=== PATIENT | female | born 1975 | race Caucasian/White ===

== ENCOUNTER 2017-08-22 16:25 | Emergency (ER) | payer OTHER, MEDICARE ==
[~2017-08-22] VITALS: Ht 167.6 cm; Wt 75.5 kg
[~2017-08-22 16:25] MED LIST: LURA40 PO
[2017-08-22] MEDS ORDERED: SODIUM CHLORIDE 0.9% 1,000 ML IV ONE (17:45)
[2017-08-22 18:30] LABS: BASOPHILS % (AUTO) 1.2 % (0.0-2.0); EOSINOPHILS % (AUTO) 3.8 % (1.0-6.0); HEMATOCRIT 34.4 % (36-46); HEMOGLOBIN 11.9 g/dL (12.0-16.0); LYMPHOCYTES # (AUTO) 1.6 K/uL (1.0-4.8); MEAN CORPUSCULAR HEMOGLOBIN 29.5 pg (26.0-34.0); MEAN CORPUSCULAR HGB CONC 34.6 G/dL (31.0-37.0); MEAN CORPUSCULAR VOLUME 85 fL (80-100); MONOCYTES # (AUTO) 0.5 K/uL (0.1-1.0); MONOCYTES % (AUTO) 7.1 % (2.0-9.0); NEUTROPHILS # (AUTO) 4.9 K/uL (1.8-7.7); NEUTROPHILS % (AUTO) 65.9 % (40.0-70.0); PLATELET COUNT (AUTO) 340 K/uL (150-450); RED BLOOD CELL COUNT(AUTO) 4.04 MIL/uL (4.00-5.20); RED CELL DISTRIBUTION WIDTH 14.5 % (11.5-14.5); WHITE BLOOD COUNT (AUTO) 7.5 K/uL (4.5-11.0)
[2017-08-22 18:41] LABS: ANION GAP 7 mmol/L (8-16); CALCIUM, TOTAL 8.4 mg/dL (8.8-10.5); CARBON DIOXIDE 25 mmol/L (22-29); CHLORIDE 106 mmol/L (98-107); CREATININE 0.87 mg/dL (0.60-1.30); GLOMERULAR FILTR. RATE CALC > 60 mL/min (>60); POTASSIUM 3.2 mmol/L (3.5-5.1); SODIUM SERUM 138 mmol/L (136-145); UREA NITROGEN, BLOOD 9 mg/dL (7-18)
[2017-08-22 18:55] LABS: ALANINE AMINOTRANSFERASE 56 U/L (12-78); ALBUMIN 3.6 g/dL (3.4-5.0); ASPARTATE AMINOTRANSFERASE 28 U/L (15-37); BILIRUBIN,TOTAL 0.6 mg/dL (0.1-1.0); THYROID STIMULATING HORMONE 0.89 uIU/mL (0.36-3.74); TOTAL PROTEIN, SERUM 6.5 g/dL (6.4-8.2)
[2017-08-22] MEDS ORDERED: POTASSIUM CHLORIDE 10% 40 MEQ/30 ML LIQUID UDCUP PO ONE (19:00)
[2017-08-22 19:50] LABS: ADD UA MICROSCOPIC YES; APPEARANCE,URINE CLEAR (CLEAR); GLUCOSE, URINE (UA) NEGATIVE (NEGATIVE); KETONES,URINE NEGATIVE (NEGATIVE); LEUKOCYTE ESTERASE ,URINE TRACE (NEGATIVE); OCCULT BLOOD,URINE NEGATIVE (NEGATIVE); PROTEIN,URINE NEGATIVE (NEGATIVE)
[2017-08-22 19:51] VITALS: BP 100/65
[2017-08-22 19:56] LABS: SQUAMOUS EPITHELIAL CELL,UR Moderate /LPF (None Seen)
[2017-08-22 19:58] LABS: RBC,URINE 0-2 /HPF (0-2)
== END 2017-08-22 19:54 | disposition home or self-care (01) ==
LOC: EMS 16:26
DX: R53.1 Weakness (principal); E87.6 Hypokalemia; F41.9 Anxiety disorder, unspecified; I10 Essential (primary) hypertension; F32.9 Major depressive disorder, single episode, unspecified; F20.9 Schizophrenia, unspecified
CPT/HCPCS: 36415; 80053; 80307; 81001; 84443; 84484; 84703; 85025; 87086; 93005; 96360; 99285; G0480; J7030

== ENCOUNTER 2017-10-30 17:49 | Emergency (ER) | payer MEDICARE, OTHER ==
[~2017-10-30] VITALS: Ht 165.1 cm; Wt 66.0 kg
[2017-10-30] MEDS ORDERED: SODIUM CHLORIDE 0.9% 1,000 ML IV ONE (18:45)
[2017-10-30] MEDS ORDERED: FAMOTIDINE 10 MG/ML 2 ML VIAL IVP ONE (18:45)
[2017-10-30] MEDS ORDERED: ONDANSETRON HCL 4 MG/2 ML VIAL IVP ONE (18:45)
[2017-10-30 18:52] LABS: BASOPHILS % (AUTO) 0.8 % (0.0-2.0); EOSINOPHILS % (AUTO) 0.5 % (1.0-6.0); HEMATOCRIT 38.4 % (36-46); HEMOGLOBIN 13.2 g/dL (12.0-16.0); LYMPHOCYTES # (AUTO) 0.8 K/uL (1.0-4.8); MEAN CORPUSCULAR HEMOGLOBIN 29.3 pg (26.0-34.0); MEAN CORPUSCULAR HGB CONC 34.5 G/dL (31.0-37.0); MEAN CORPUSCULAR VOLUME 85 fL (80-100); MONOCYTES # (AUTO) 0.3 K/uL (0.1-1.0); MONOCYTES % (AUTO) 3.5 % (2.0-9.0); NEUTROPHILS # (AUTO) 7.6 K/uL (1.8-7.7); PLATELET COUNT (AUTO) 312 K/uL (150-450); RED BLOOD CELL COUNT(AUTO) 4.51 MIL/uL (4.00-5.20); RED CELL DISTRIBUTION WIDTH 13.9 % (11.5-14.5)
[2017-10-30 18:57] LABS: NEUTROPHILS % (AUTO) 86.2 % (40.0-70.0)
[2017-10-30 18:58] LABS: ANION GAP 10 mmol/L (8-16); CARBON DIOXIDE 24 mmol/L (22-29); CHLORIDE 101 mmol/L (98-107); CREATININE 0.73 mg/dL (0.60-1.30); GLOMERULAR FILTR. RATE CALC > 60 mL/min (>60); GLUCOSE,RANDOM 106 mg/dL (70-110); POTASSIUM 3.8 mmol/L (3.5-5.1); SODIUM SERUM 135 mmol/L (136-145); UREA NITROGEN, BLOOD 9 mg/dL (7-18)
[2017-10-30 19:04] LABS: ALANINE AMINOTRANSFERASE 28 U/L (12-78); ALBUMIN 3.8 g/dL (3.4-5.0); ALKALINE PHOSPHATASE 96 U/L (46-116); AMYLASE 41 U/L (25-115); ASPARTATE AMINOTRANSFERASE 16 U/L (15-37); BILIRUBIN,TOTAL 0.9 mg/dL (0.1-1.0); LIPASE 96 U/L (73-393); TOTAL PROTEIN, SERUM 7.4 g/dL (6.4-8.2)
[2017-10-30 19:35] VITALS: BP 101/65
[2017-10-30 20:01] LABS: APPEARANCE,URINE TURBID (CLEAR); BILIRUBIN,URINE NEGATIVE (NEGATIVE); GLUCOSE, URINE (UA) NEGATIVE (NEGATIVE); KETONES,URINE 40 mg/dL (NEGATIVE); LEUKOCYTE ESTERASE ,URINE NEGATIVE (NEGATIVE); NITRATE,URINE NEGATIVE (NEGATIVE); OCCULT BLOOD,URINE NEGATIVE (NEGATIVE); PH,URINE 8.5 (5.0-8.0); PROTEIN,URINE NEGATIVE (NEGATIVE); UROBILINOGEN,URINE 0.2 mg/dL (<=1.0)
[2017-10-30 20:06] LABS: AMPHET/METH SCREEN,URINE NEGATIVE (NEGATIVE); BARBITURATE SCREEN, URINE NEGATIVE (NEGATIVE); BENZODIAZEPINES SCREEN,URINE NEGATIVE (NEGATIVE); CANNABINOID SCREEN,URINE NEGATIVE (NEGATIVE); COCAINE SCREEN,URINE NEGATIVE (NEGATIVE); METHADONE SCREEN, URINE NEGATIVE (NEGATIVE); OPIATE SCREEN,URINE NEGATIVE (NEGATIVE)
[2017-10-30 20:10] LABS: PHENCYCLIDINE SCREEN,URINE NEGATIVE (NEGATIVE)
[2017-10-30 20:17] LABS: AMORPHOUS SEDIMENT,UR Moderate /LPF (None Seen); BACTERIA,URINE None Seen /HPF (None Seen); RBC,URINE 0-2 /HPF (0-2); SQUAMOUS EPITHELIAL CELL,UR Few /LPF (None Seen); WBC,URINE None Seen /HPF (0-5)
== END 2017-10-30 21:12 | disposition home or self-care (01) ==
LOC: EMS 17:50
DX: R10.84 Generalized abdominal pain (principal); R11.2 Nausea with vomiting, unspecified; R19.7 Diarrhea, unspecified; I10 Essential (primary) hypertension
CPT/HCPCS: 36415; 80053; 80307; 81001; 82150; 83690; 84703; 85025; 96361; 96374; 96375; 99284; G0480; J2405; J3490; J7030

== ENCOUNTER 2018-03-30 23:58 | Emergency (ER) | payer MEDICARE ==
[~2018-03-30] VITALS: Ht 167.6 cm; Wt 75.0 kg
[2018-03-31 00:14] VITALS: BP 109/63
== END 2018-03-31 01:40 | disposition left against medical advice (07) ==
LOC: EMS 03-31
DX: R51 Headache (principal); I10 Essential (primary) hypertension; Z53.21 Procedure and treatment not carried out due to patient leaving prior to being seen by health care provider

== ENCOUNTER 2018-04-27 09:09 | Inpatient (IN) | payer MEDICARE ==
[~2018-04-27] VITALS: Ht 167.6 cm; Wt 66.7 kg
[2018-04-27 11:00] VITALS: BP 97/63
[2018-04-27] MEDS ORDERED: LORazepam 2 MG TABLET PO PRN (11:00)
[2018-04-27] MEDS ORDERED: ZOLPIDEM TARTRATE 10 MG TABLET PO PRN (11:00)
[2018-04-27] MEDS ORDERED: HALOPERIDOL 5 MG TABLET PO PRN (11:00)
[2018-04-27 13:40] VITALS: BP 109/76
[2018-04-27] MEDS ORDERED: BACITRACIN 28.4 GM OINTMENT TP PRN (14:30)
[2018-04-27] MEDS ORDERED: CloNIDine HCL 0.1 MG TABLET PO PRN (14:30)
[2018-04-27] MEDS ORDERED: LOPERAMIDE HCL 2 MG CAPSULE PO PRN (14:30)
[2018-04-27] MEDS ORDERED: BENZOCAINE/MENTHOL LOZENGE MM PRN (14:30)
[2018-04-27] MEDS ORDERED: MAGNESIUM HYDROXIDE SUSPENSION 30 ML UDCUP PO PRN (14:30)
[2018-04-27] MEDS ORDERED: ACETAMINOPHEN 325 MG TABLET PO PRN (14:30)
[2018-04-27] MEDS ORDERED: ONDANSETRON HCL 4 MG TABLET PO PRN (14:30)
[2018-04-27] MEDS ORDERED: IBUPROFEN 600 MG TABLET PO PRN (14:30)
[2018-04-27] MEDS ORDERED: ALBUTEROL SULFATE HFA 90 MCG/PUFF 8 GM INHALER IH PRN (14:30)
[2018-04-27] MEDS ORDERED: MAG HYDROX/AL HYDROX/SIMETH ES 30 ML SUSPENSION UDCUP PO PRN (14:30)
[2018-04-27] MEDS ORDERED: PETROLATUM,WHITE 71 GM JELLY TP PRN (14:30)
[2018-04-27 16:05] VITALS: BP 106/68
[2018-04-27 18:08] VITALS: BP 107/63
[2018-04-27] MEDS: QUEtiapine FUMARATE 200 MG TABLET PO SCH (20:49)
[2018-04-28 01:26] VITALS: BP 105/63
[2018-04-28 07:59] LABS: APPEARANCE,URINE CLEAR (CLEAR); BILIRUBIN,URINE NEGATIVE (NEGATIVE); GLUCOSE, URINE (UA) NEGATIVE (NEGATIVE); KETONES,URINE NEGATIVE (NEGATIVE); LEUKOCYTE ESTERASE ,URINE MODERATE (NEGATIVE); NITRATE,URINE NEGATIVE (NEGATIVE); OCCULT BLOOD,URINE NEGATIVE (NEGATIVE); PROTEIN,URINE NEGATIVE (NEGATIVE); UROBILINOGEN,URINE 0.2 mg/dL (<=1.0)
[2018-04-28 08:03] LABS: BASOPHILS % (AUTO) 0.6 % (0.0-2.0); HEMATOCRIT 38.5 % (36-46); HEMOGLOBIN 13.3 g/dL (12.0-16.0); LYMPHOCYTES # (AUTO) 2.2 K/uL (1.0-4.8); LYMPHOCYTES % (AUTO) 34.8 % (22.0-44.0); MEAN CORPUSCULAR HGB CONC 34.4 G/dL (31.0-37.0); MEAN CORPUSCULAR VOLUME 84 fL (80-100); MONOCYTES # (AUTO) 0.5 K/uL (0.1-1.0); MONOCYTES % (AUTO) 7.3 % (2.0-9.0); NEUTROPHILS # (AUTO) 3.3 K/uL (1.8-7.7); NEUTROPHILS % (AUTO) 52.3 % (40.0-70.0); PLATELET COUNT (AUTO) 304 K/uL (150-450); RED BLOOD CELL COUNT(AUTO) 4.56 MIL/uL (4.00-5.20); RED CELL DISTRIBUTION WIDTH 14.1 % (11.5-14.5)
[2018-04-28 08:04] LABS: AMPHET/METH SCREEN,URINE NEGATIVE (NEGATIVE); BARBITURATE SCREEN, URINE NEGATIVE (NEGATIVE); BENZODIAZEPINES SCREEN,URINE NEGATIVE (NEGATIVE); CANNABINOID SCREEN,URINE NEGATIVE (NEGATIVE); COCAINE SCREEN,URINE NEGATIVE (NEGATIVE); METHADONE SCREEN, URINE NEGATIVE (NEGATIVE); OPIATE SCREEN,URINE NEGATIVE (NEGATIVE)
[2018-04-28 08:06] LABS: PHENCYCLIDINE SCREEN,URINE NEGATIVE (NEGATIVE)
[2018-04-28 08:16] VITALS: BP 110/71
[2018-04-28 08:17] LABS: BACTERIA,URINE None Seen /HPF (None Seen); SQUAMOUS EPITHELIAL CELL,UR Few /LPF (None Seen)
[2018-04-28 08:26] LABS: ALANINE AMINOTRANSFERASE 27 U/L (12-78); ALBUMIN 3.4 g/dL (3.4-5.0); ALKALINE PHOSPHATASE 76 U/L (46-116); ANION GAP 8 mmol/L (8-16); ASPARTATE AMINOTRANSFERASE 16 U/L (15-37); BILIRUBIN,TOTAL 0.6 mg/dL (0.1-1.0); CALCIUM, TOTAL 8.7 mg/dL (8.8-10.5); CARBON DIOXIDE 25 mmol/L (22-29); CHLORIDE 105 mmol/L (98-107); CHOL/HDL RATIO 3.2 (3.9-5.7); CHOLESTEROL 116 mg/dL (131-200); CREATININE 0.78 mg/dL (0.60-1.30); FREE T4 (FREE THYROXINE) 0.83 ng/dL (0.76-1.46); GLOMERULAR FILTR. RATE CALC > 60 mL/min (>60); GLUCOSE,RANDOM 93 mg/dL (70-110); HCG,QUANTITATIVE < 1 mIU/mL (0-6); HDL CHOLESTEROL 36 mg/dL (40-60); LDL CHOL (CALC.) 59 mg/dL (0-130); POTASSIUM 3.5 mmol/L (3.5-5.1); SODIUM SERUM 138 mmol/L (136-145); THYROID STIMULATING HORMONE 1.24 uIU/mL (0.36-3.74); TOTAL PROTEIN, SERUM 6.6 g/dL (6.4-8.2); TRIGLYCERIDES 107 mg/dL (15-150); UREA NITROGEN, BLOOD 12 mg/dL (7-18)
[2018-04-28] MEDS: OMEPRAZOLE 20 MG CAPSULE PO SCH (09:53)
[2018-04-28] MEDS: DOCUSATE SODIUM 100 MG CAPSULE PO SCH (09:53)
[2018-04-28] MEDS: QUEtiapine FUMARATE 100 MG TABLET PO SCH (09:53)
[2018-04-28 16:15] VITALS: BP 112/78
[2018-04-28] MEDS: QUEtiapine FUMARATE 200 MG TABLET PO SCH (20:07)
[2018-04-29 04:15] VITALS: BP 110/80
[2018-04-29 08:21] VITALS: BP 106/56
[2018-04-29] MEDS: OMEPRAZOLE 20 MG CAPSULE PO SCH (09:40)
[2018-04-29] MEDS: DOCUSATE SODIUM 100 MG CAPSULE PO SCH (09:40)
[2018-04-29] MEDS: QUEtiapine FUMARATE 100 MG TABLET PO SCH (09:40)
[2018-04-29 16:44] VITALS: BP 114/68
[2018-04-29] MEDS: QUEtiapine FUMARATE 200 MG TABLET PO SCH (20:16)
[2018-04-30 06:43] VITALS: BP 116/62
[2018-04-30 08:48] VITALS: BP 101/66
[2018-04-30] MEDS: OMEPRAZOLE 20 MG CAPSULE PO SCH (09:02)
[2018-04-30] MEDS: DOCUSATE SODIUM 100 MG CAPSULE PO SCH (09:02)
[2018-04-30] MEDS: QUEtiapine FUMARATE 100 MG TABLET PO SCH (09:02)
[2018-04-30 18:51] VITALS: BP 104/62
[2018-04-30] MEDS: QUEtiapine FUMARATE 200 MG TABLET PO SCH (20:26)
[2018-05-01 06:05] VITALS: BP 103/66
[2018-05-01 08:43] VITALS: BP 100/61
[2018-05-01] MEDS: QUEtiapine FUMARATE 100 MG TABLET PO SCH (09:29)
[2018-05-01] MEDS: DOCUSATE SODIUM 100 MG CAPSULE PO SCH (09:29)
[2018-05-01] MEDS: OMEPRAZOLE 20 MG CAPSULE PO SCH (09:29)
[2018-05-01 16:37] VITALS: BP 112/69
[2018-05-01] MEDS: QUEtiapine FUMARATE 200 MG TABLET PO SCH (20:27)
[2018-05-02 06:59] VITALS: BP 105/65
[2018-05-02 08:42] VITALS: BP 101/61
[2018-05-02] MEDS: DOCUSATE SODIUM 100 MG CAPSULE PO SCH (09:27)
[2018-05-02] MEDS: OMEPRAZOLE 20 MG CAPSULE PO SCH (09:27)
[2018-05-02] MEDS: QUEtiapine FUMARATE 100 MG TABLET PO SCH (09:27)
[2018-05-02 16:10] VITALS: BP 110/66
[2018-05-02] MEDS: QUEtiapine FUMARATE 200 MG TABLET PO SCH (20:57)
[2018-05-03] VITALS: BP 138/76
[2018-05-03 08:00] VITALS: BP 108/66
[2018-05-03] MEDS: QUEtiapine FUMARATE 100 MG TABLET PO SCH (09:01)
[2018-05-03] MEDS: OMEPRAZOLE 20 MG CAPSULE PO SCH (09:01)
[2018-05-03] MEDS: DOCUSATE SODIUM 100 MG CAPSULE PO SCH (09:01)
[2018-05-03 16:37] VITALS: BP 124/75
[2018-05-03] MEDS: QUEtiapine FUMARATE 200 MG TABLET PO SCH (20:25)
[2018-05-04 06:44] VITALS: BP 101/61
[2018-05-04] MEDS: OMEPRAZOLE 20 MG CAPSULE PO SCH (08:17)
[2018-05-04] MEDS: DOCUSATE SODIUM 100 MG CAPSULE PO SCH (08:17)
[2018-05-04] MEDS: QUEtiapine FUMARATE 100 MG TABLET PO SCH (08:17)
[2018-05-04 08:34] VITALS: BP 110/73
[2018-05-04 16:12] VITALS: BP 110/70
[2018-05-04] MEDS: QUEtiapine FUMARATE 200 MG TABLET PO SCH (20:40)
[2018-05-05 02:20] VITALS: BP 103/64
[2018-05-05 08:56] VITALS: BP 111/70
[2018-05-05] MEDS: QUEtiapine FUMARATE 100 MG TABLET PO SCH (09:18)
[2018-05-05] MEDS: OMEPRAZOLE 20 MG CAPSULE PO SCH (09:18)
[2018-05-05] MEDS: DOCUSATE SODIUM 100 MG CAPSULE PO SCH (09:18)
[2018-05-05 16:13] VITALS: BP 107/71
[2018-05-05] MEDS: QUEtiapine FUMARATE 200 MG TABLET PO SCH (21:38)
[2018-05-06 01:05] VITALS: BP 102/63
[2018-05-06 08:24] VITALS: BP 100/60
[2018-05-06] MEDS: QUEtiapine FUMARATE 100 MG TABLET PO SCH (09:56)
[2018-05-06] MEDS: OMEPRAZOLE 20 MG CAPSULE PO SCH (09:56)
[2018-05-06] MEDS: DOCUSATE SODIUM 100 MG CAPSULE PO SCH (09:57)
[2018-05-06 16:20] VITALS: BP 108/60
[2018-05-06] MEDS: QUEtiapine FUMARATE 200 MG TABLET PO SCH (21:17)
[2018-05-07 02:39] VITALS: BP 103/60
[2018-05-07 08:48] VITALS: BP 101/66
[2018-05-07] MEDS: DOCUSATE SODIUM 100 MG CAPSULE PO SCH (08:59)
[2018-05-07] MEDS: QUEtiapine FUMARATE 100 MG TABLET PO SCH (08:59)
[2018-05-07] MEDS: OMEPRAZOLE 20 MG CAPSULE PO SCH (08:59)
[2018-05-07 16:12] VITALS: BP 106/67
[2018-05-07] MEDS: QUEtiapine FUMARATE 200 MG TABLET PO SCH (20:22)
[2018-05-08 00:49] VITALS: BP 102/64
[2018-05-08 08:00] VITALS: BP 112/67
[2018-05-08] MEDS: DOCUSATE SODIUM 100 MG CAPSULE PO SCH (09:06)
[2018-05-08] MEDS: QUEtiapine FUMARATE 100 MG TABLET PO SCH (09:07)
[2018-05-08] MEDS: OMEPRAZOLE 20 MG CAPSULE PO SCH (09:07)
[2018-05-08 16:06] VITALS: BP 116/64
[2018-05-08] MEDS: QUEtiapine FUMARATE 200 MG TABLET PO SCH (20:02)
[2018-05-09 01:14] VITALS: BP 107/60
[2018-05-09] MEDS: OMEPRAZOLE 20 MG CAPSULE PO SCH (08:37)
[2018-05-09] MEDS: DOCUSATE SODIUM 100 MG CAPSULE PO SCH (08:37)
[2018-05-09] MEDS: QUEtiapine FUMARATE 100 MG TABLET PO SCH (08:37)
[2018-05-09 09:16] VITALS: BP 100/71
[2018-05-09 16:13] VITALS: BP 111/62
[2018-05-09] MEDS: QUEtiapine FUMARATE 200 MG TABLET PO SCH (20:01)
[2018-05-10 03:30] VITALS: BP 108/60
[2018-05-10 08:22] VITALS: BP 69/55
[2018-05-10] MEDS: QUEtiapine FUMARATE 100 MG TABLET PO SCH (09:29)
[2018-05-10] MEDS: OMEPRAZOLE 20 MG CAPSULE PO SCH (09:29)
[2018-05-10] MEDS: DOCUSATE SODIUM 100 MG CAPSULE PO SCH (09:29)
[2018-05-10 17:54] VITALS: BP 102/62
[2018-05-10] MEDS: QUEtiapine FUMARATE 200 MG TABLET PO SCH (20:18)
[2018-05-11 02:12] VITALS: BP 102/63
[2018-05-11] MEDS ORDERED: QUET200T PO (07:51)
[2018-05-11] MEDS ORDERED: QUET100T PO (07:51)
[2018-05-11] MEDS: OMEPRAZOLE 20 MG CAPSULE PO SCH (08:37)
[2018-05-11 08:38] VITALS: BP 108/62
[2018-05-11] MEDS: QUEtiapine FUMARATE 100 MG TABLET PO SCH (08:38)
[2018-05-11] MEDS: DOCUSATE SODIUM 100 MG CAPSULE PO SCH (08:38)
== END 2018-05-11 10:25 | disposition home or self-care (01) | DRG 885 ==
LOC: B2S 10:59
PROVIDERS: ADMIT Psychiatry & Neurology Psychiatry; ATTEND Psychiatry & Neurology Psychiatry
DX: F20.9 Schizophrenia, unspecified (principal); F41.9 Anxiety disorder, unspecified; G47.00 Insomnia, unspecified; K59.00 Constipation, unspecified; Z79.899 Other long term (current) drug therapy
CPT/HCPCS: 82306; 83036; 84439; 84443; 87081

== ENCOUNTER 2018-12-09 16:28 | Inpatient (IN) | payer MEDICARE, MEDICAID ==
[~2018-12-09] VITALS: Ht 167.6 cm; Wt 65.0 kg
[~2018-12-09 16:28] MED LIST changes: -LURA40 PO; +QUET100T PO; +QUET200T PO
[2018-12-09 18:23] VITALS: BP 119/90
[2018-12-09] MEDS ORDERED: QUET100T PO (18:59)
[2018-12-09] MEDS ORDERED: QUET200T PO (18:59)
[2018-12-09] MEDS ORDERED: HALOPERIDOL 5 MG TABLET PO PRN (19:00)
[2018-12-09] MEDS ORDERED: ZOLPIDEM TARTRATE 10 MG TABLET PO PRN (19:00)
[2018-12-09] MEDS ORDERED: LORazepam 2 MG TABLET PO PRN (19:00)
[2018-12-09 19:41] VITALS: BP 111/72
[2018-12-09] MEDS ORDERED: MAGNESIUM HYDROXIDE SUSPENSION 30 ML UDCUP PO PRN (20:15)
[2018-12-09] MEDS ORDERED: MAG HYDROX/AL HYDROX/SIMETH ES 30 ML SUSPENSION UDCUP PO PRN (20:15)
[2018-12-09] MEDS ORDERED: PETROLATUM,WHITE 71 GM JELLY TP PRN (20:15)
[2018-12-09] MEDS ORDERED: DOCUSATE SODIUM 100 MG CAPSULE PO PRN (20:15)
[2018-12-09] MEDS ORDERED: ACETAMINOPHEN 325 MG TABLET PO PRN (20:15)
[2018-12-10 06:25] VITALS: BP 112/76
[2018-12-10 08:19] VITALS: BP 100/63
[2018-12-10 08:36] LABS: BASOPHILS % (AUTO) 0.5 % (0.0-2.0); EOSINOPHILS % (AUTO) 7.7 % (1.0-6.0); HEMATOCRIT 36.7 % (36-46); HEMOGLOBIN 12.4 g/dL (12.0-16.0); LYMPHOCYTES % (AUTO) 35.9 % (22.0-44.0); MEAN CORPUSCULAR HEMOGLOBIN 28.5 pg (26.0-34.0); MEAN CORPUSCULAR HGB CONC 33.8 G/dL (31.0-37.0); MEAN CORPUSCULAR VOLUME 84 fL (80-100); MONOCYTES # (AUTO) 0.5 K/uL (0.1-1.0); MONOCYTES % (AUTO) 8.2 % (2.0-9.0); NEUTROPHILS # (AUTO) 2.6 K/uL (1.8-7.7); NEUTROPHILS % (AUTO) 47.7 % (40.0-70.0); PLATELET COUNT (AUTO) 383 K/uL (150-450); RED BLOOD CELL COUNT(AUTO) 4.36 MIL/uL (4.00-5.20); RED CELL DISTRIBUTION WIDTH 13.9 % (11.5-14.5)
[2018-12-10 09:32] LABS: ALANINE AMINOTRANSFERASE 37 U/L (12-78); ALBUMIN 3.1 g/dL (3.4-5.0); ALKALINE PHOSPHATASE 107 U/L (46-116); ANION GAP 7 mmol/L (8-16); ASPARTATE AMINOTRANSFERASE 28 U/L (15-37); BILIRUBIN,TOTAL 0.4 mg/dL (0.1-1.0); CALCIUM, TOTAL 8.6 mg/dL (8.8-10.5); CARBON DIOXIDE 27 mmol/L (22-29); CHLORIDE 104 mmol/L (98-107); CHOL/HDL RATIO 3.2 (3.9-5.7); CHOLESTEROL 113 mg/dL (131-200); CREATININE 0.87 mg/dL (0.60-1.30); FREE T4 (FREE THYROXINE) 0.93 ng/dL (0.76-1.46); GLOMERULAR FILTR. RATE CALC > 60 mL/min (>60); GLUCOSE,RANDOM 88 mg/dL (70-110); HCG,QUANTITATIVE < 1 mIU/mL (0-6); HDL CHOLESTEROL 35 mg/dL (40-60); LDL CHOL (CALC.) 63 mg/dL (0-130); POTASSIUM 3.9 mmol/L (3.5-5.1); SODIUM SERUM 138 mmol/L (136-145); THYROID STIMULATING HORMONE 1.38 uIU/mL (0.36-3.74); TOTAL PROTEIN, SERUM 6.4 g/dL (6.4-8.2); TRIGLYCERIDES 74 mg/dL (15-150); UREA NITROGEN, BLOOD 10 mg/dL (7-18)
[2018-12-10 09:46] LABS: HEMOGLOBIN A1C 5.5 % (4.5-6.2)
[2018-12-10] MEDS ORDERED: MAGNESIUM HYDROXIDE SUSPENSION 30 ML UDCUP PO PRN (14:00)
[2018-12-10] MEDS ORDERED: NICOTINE 14 MG/24 HOUR PATCH TD PRN (14:00)
[2018-12-10] MEDS ORDERED: CloNIDine HCL 0.1 MG TABLET PO PRN (14:00)
[2018-12-10] MEDS ORDERED: ACETAMINOPHEN 325 MG TABLET PO PRN (14:00)
[2018-12-10] MEDS ORDERED: ALBUTEROL SULFATE HFA 90 MCG/PUFF 8 GM INHALER IH PRN (14:00)
[2018-12-10] MEDS ORDERED: LOPERAMIDE HCL 2 MG CAPSULE PO PRN (14:00)
[2018-12-10] MEDS ORDERED: GuaiFENesin/D-METHORPHAN [SUGAR-FREE] 200-20MG/10 ML SYRUP UDCUP PO PRN (14:00)
[2018-12-10] MEDS ORDERED: PETROLATUM,WHITE 71 GM JELLY TP PRN (14:00)
[2018-12-10] MEDS ORDERED: MAG HYDROX/AL HYDROX/SIMETH ES 30 ML SUSPENSION UDCUP PO PRN (14:00)
[2018-12-10] MEDS ORDERED: DOCUSATE SODIUM 100 MG CAPSULE PO PRN (14:00)
[2018-12-10] MEDS ORDERED: ONDANSETRON HCL 4 MG TABLET PO PRN (14:00)
[2018-12-10] MEDS ORDERED: IBUPROFEN 400 MG TABLET PO PRN (14:00)
[2018-12-10 16:02] VITALS: BP 108/67
[2018-12-10] MEDS ORDERED: QUEtiapine FUMARATE 200 MG TABLET PO SCH (21:00)
[2018-12-11 01:13] VITALS: BP 114/78
[2018-12-11 08:35] VITALS: BP 109/64
[2018-12-11] MEDS ORDERED: QUEtiapine FUMARATE 100 MG TABLET PO SCH (09:00)
[2018-12-11 16:05] VITALS: BP 91/59
[2018-12-11] MEDS ORDERED: QUEtiapine FUMARATE 200 MG TABLET PO SCH (21:00)
[2018-12-12 00:57] VITALS: BP 102/65
[2018-12-12] MEDS: QUEtiapine FUMARATE 200 MG TABLET PO SCH ×2 (08:08→20:31)
[2018-12-12 08:12] VITALS: BP 108/66
[2018-12-12 16:32] VITALS: BP 110/66
[2018-12-13 01:13] VITALS: BP 102/63
[2018-12-13 08:10] VITALS: BP 112/69
[2018-12-13] MEDS: QUEtiapine FUMARATE 200 MG TABLET PO SCH ×2 (08:12→20:35)
[2018-12-13 16:06] VITALS: BP 100/69
[2018-12-14 06:13] VITALS: BP 106/62
[2018-12-14 08:29] VITALS: BP 108/65
[2018-12-14] MEDS: QUEtiapine FUMARATE 200 MG TABLET PO SCH ×2 (09:52→20:29)
[2018-12-14 16:06] VITALS: BP 109/68
[2018-12-15 04:39] VITALS: BP 105/63
[2018-12-15] MEDS: QUEtiapine FUMARATE 200 MG TABLET PO SCH (08:21)
[2018-12-15 09:30] VITALS: BP 103/60
[2018-12-15 16:32] VITALS: BP 140/67
== END 2018-12-15 18:30 | disposition home or self-care (01) | DRG 885 ==
LOC: B2X 18:48
PROVIDERS: ADMIT Psychiatry & Neurology Psychiatry; ATTEND Psychiatry & Neurology Psychiatry
DX: F20.0 Paranoid schizophrenia (principal); E44.0 Moderate protein-calorie malnutrition; K59.00 Constipation, unspecified; G47.00 Insomnia, unspecified; R45.87 Impulsiveness; F41.9 Anxiety disorder, unspecified; Z68.23 Body mass index [BMI] 23.0-23.9, adult; Z59.0 Homelessness
CPT/HCPCS: 83036; 84439; 84443; 90686

== ENCOUNTER 2019-04-21 11:13 | Inpatient (IN) | payer MEDICARE, MEDICAID ==
[~2019-04-21] VITALS: Ht 167.6 cm; Wt 70.8 kg
[~2019-04-21 11:13] MED LIST changes: +CITA-106 PO
[2019-04-21 11:21] VITALS: BP 128/70
[2019-04-21] MEDS ORDERED: ZOLPIDEM TARTRATE 10 MG TABLET PO PRN (12:00)
[2019-04-21] MEDS ORDERED: QUEtiapine FUMARATE 100 MG TABLET PO PRN (12:00)
[2019-04-21] MEDS ORDERED: LORazepam 2 MG TABLET PO PRN (12:00)
[2019-04-21 12:42] VITALS: BP 103/61
[2019-04-21] MEDS: CITALOPRAM HYDROBROMIDE 20 MG TABLET PO SCH (12:55)
[2019-04-21] MEDS: QUEtiapine FUMARATE 100 MG TABLET PO SCH (12:56)
[2019-04-21 16:27] VITALS: BP 120/70
[2019-04-21] MEDS: QUEtiapine FUMARATE 200 MG TABLET PO SCH (20:25)
[2019-04-22 06:26] VITALS: BP 116/72
[2019-04-22 08:17] VITALS: BP 102/64
[2019-04-22 08:33] LABS: BASOPHILS % (AUTO) 0.8 % (0.0-2.0); EOSINOPHILS % (AUTO) 4.4 % (1.0-6.0); HEMATOCRIT 39.3 % (36-46); LYMPHOCYTES # (AUTO) 1.8 K/uL (1.0-4.8); LYMPHOCYTES % (AUTO) 28.3 % (22.0-44.0); MEAN CORPUSCULAR HGB CONC 33.1 G/dL (31.0-37.0); MEAN CORPUSCULAR VOLUME 88 fL (80-100); MONOCYTES # (AUTO) 0.5 K/uL (0.1-1.0); MONOCYTES % (AUTO) 7.4 % (2.0-9.0); NEUTROPHILS # (AUTO) 3.8 K/uL (1.8-7.7); NEUTROPHILS % (AUTO) 59.1 % (40.0-70.0); PLATELET COUNT (AUTO) 346 K/uL (150-450); RED BLOOD CELL COUNT(AUTO) 4.49 MIL/uL (4.00-5.20); RED CELL DISTRIBUTION WIDTH 14.4 % (11.5-14.5)
[2019-04-22 09:03] LABS: ALANINE AMINOTRANSFERASE 23 U/L (12-78); ALBUMIN 3.1 g/dL (3.4-5.0); ALKALINE PHOSPHATASE 81 U/L (46-116); ANION GAP 12 mmol/L (8-16); ASPARTATE AMINOTRANSFERASE 17 U/L (15-37); BILIRUBIN,TOTAL 0.8 mg/dL (0.1-1.0); CALCIUM, TOTAL 8.2 mg/dL (8.8-10.5); CARBON DIOXIDE 25 mmol/L (22-29); CHLORIDE 104 mmol/L (98-107); CHOL/HDL RATIO 4.1 (3.9-5.7); CHOLESTEROL 140 mg/dL (131-200); CREATININE 0.81 mg/dL (0.60-1.30); FREE T4 (FREE THYROXINE) 0.83 ng/dL (0.76-1.46); GLOMERULAR FILTR. RATE CALC > 60 mL/min (>60); GLUCOSE,RANDOM 82 mg/dL (70-110); HDL CHOLESTEROL 34 mg/dL (40-60); LDL CHOL (CALC.) 81 mg/dL (0-130); POTASSIUM 3.8 mmol/L (3.5-5.1); SODIUM SERUM 141 mmol/L (136-145); TOTAL PROTEIN, SERUM 6.7 g/dL (6.4-8.2); TRIGLYCERIDES 123 mg/dL (15-150); UREA NITROGEN, BLOOD 13 mg/dL (7-18)
[2019-04-22] MEDS: CITALOPRAM HYDROBROMIDE 20 MG TABLET PO SCH (09:17)
[2019-04-22] MEDS: QUEtiapine FUMARATE 100 MG TABLET PO SCH (09:17)
[2019-04-22 16:10] VITALS: BP 109/67
[2019-04-22] MEDS: QUEtiapine FUMARATE 200 MG TABLET PO SCH (20:11)
[2019-04-23 01:27] VITALS: BP 112/66
[2019-04-23] MEDS: CITALOPRAM HYDROBROMIDE 20 MG TABLET PO SCH (08:36)
[2019-04-23] MEDS: QUEtiapine FUMARATE 100 MG TABLET PO SCH (08:36)
[2019-04-23 09:01] VITALS: BP 97/60
[2019-04-23 16:19] VITALS: BP 110/64
[2019-04-23] MEDS: QUEtiapine FUMARATE 200 MG TABLET PO SCH (20:35)
[2019-04-24 02:10] VITALS: BP 109/68
[2019-04-24] MEDS: CITALOPRAM HYDROBROMIDE 20 MG TABLET PO SCH (08:01)
[2019-04-24] MEDS: QUEtiapine FUMARATE 100 MG TABLET PO SCH (08:01)
[2019-04-24 08:10] VITALS: BP 101/68
[2019-04-24 16:01] VITALS: BP 114/70
[2019-04-24] MEDS ORDERED: IBUPROFEN 600 MG TABLET PO PRN (19:45)
[2019-04-24] MEDS ORDERED: ACETAMINOPHEN 325 MG TABLET PO PRN (19:45)
[2019-04-24] MEDS: QUEtiapine FUMARATE 200 MG TABLET PO SCH (20:27)
[2019-04-25 05:30] VITALS: BP 110/69
[2019-04-25 08:00] VITALS: BP 111/67
[2019-04-25] MEDS: QUEtiapine FUMARATE 100 MG TABLET PO SCH (08:50)
[2019-04-25] MEDS: CITALOPRAM HYDROBROMIDE 20 MG TABLET PO SCH (08:50)
[2019-04-25 16:00] VITALS: BP 108/74
[2019-04-25] MEDS: QUEtiapine FUMARATE 200 MG TABLET PO SCH (20:27)
[2019-04-26 05:51] VITALS: BP 100/62
[2019-04-26 08:01] VITALS: BP 114/75
[2019-04-26] MEDS: QUEtiapine FUMARATE 100 MG TABLET PO SCH (08:02)
[2019-04-26] MEDS: CITALOPRAM HYDROBROMIDE 20 MG TABLET PO SCH (08:02)
[2019-04-26 16:07] VITALS: BP 100/62
[2019-04-26] MEDS: QUEtiapine FUMARATE 200 MG TABLET PO SCH (20:32)
[2019-04-27 03:03] VITALS: BP 102/63
[2019-04-27 08:04] VITALS: BP 107/69
[2019-04-27] MEDS: CITALOPRAM HYDROBROMIDE 20 MG TABLET PO SCH (09:44)
[2019-04-27] MEDS: QUEtiapine FUMARATE 100 MG TABLET PO SCH (09:44)
[2019-04-27 16:26] VITALS: BP 104/60
[2019-04-27] MEDS: QUEtiapine FUMARATE 200 MG TABLET PO SCH (20:05)
[2019-04-27] MEDS: BISACODYL 5 MG EC TABLET PO PRN (20:28)
[2019-04-28 07:05] VITALS: BP 106/82
[2019-04-28 08:01] VITALS: BP 103/66
[2019-04-28] MEDS: QUEtiapine FUMARATE 100 MG TABLET PO SCH (08:16)
[2019-04-28] MEDS: CITALOPRAM HYDROBROMIDE 20 MG TABLET PO SCH (08:16)
[2019-04-28 16:00] VITALS: BP 100/67
[2019-04-28] MEDS: QUEtiapine FUMARATE 200 MG TABLET PO SCH (20:30)
[2019-04-29 02:50] VITALS: BP 102/68
[2019-04-29 08:01] VITALS: BP 106/68
[2019-04-29] MEDS: QUEtiapine FUMARATE 100 MG TABLET PO SCH (08:28)
[2019-04-29] MEDS: CITALOPRAM HYDROBROMIDE 20 MG TABLET PO SCH (08:28)
[2019-04-29] MEDS ORDERED: BISMUTH SUBSALICYLATE 262 MG CHEWABLE TABLET CHEW PRN (13:45)
[2019-04-29 16:12] VITALS: BP 110/74
[2019-04-29] MEDS: QUEtiapine FUMARATE 200 MG TABLET PO SCH (20:29)
[2019-04-30 06:10] VITALS: BP 114/67
[2019-04-30] MEDS: CITALOPRAM HYDROBROMIDE 20 MG TABLET PO SCH (08:01)
[2019-04-30] MEDS: QUEtiapine FUMARATE 100 MG TABLET PO SCH (08:01)
[2019-04-30 08:36] VITALS: BP 109/66
[2019-04-30 16:04] VITALS: BP 108/72
[2019-04-30] MEDS: QUEtiapine FUMARATE 200 MG TABLET PO SCH (20:05)
[2019-05-01 06:23] VITALS: BP 100/68
[2019-05-01 08:06] VITALS: BP 102/62
[2019-05-01] MEDS: CITALOPRAM HYDROBROMIDE 20 MG TABLET PO SCH (08:15)
[2019-05-01] MEDS: QUEtiapine FUMARATE 100 MG TABLET PO SCH (08:15)
[2019-05-01 16:00] VITALS: BP 102/73
[2019-05-01] MEDS: QUEtiapine FUMARATE 200 MG TABLET PO SCH (20:02)
[2019-05-02 00:20] VITALS: BP 107/64
[2019-05-02 08:12] VITALS: BP 100/60
[2019-05-02] MEDS: CITALOPRAM HYDROBROMIDE 20 MG TABLET PO SCH (08:42)
[2019-05-02] MEDS: QUEtiapine FUMARATE 100 MG TABLET PO SCH (08:42)
[2019-05-02 16:08] VITALS: BP 109/68
[2019-05-02] MEDS: QUEtiapine FUMARATE 200 MG TABLET PO SCH (20:44)
[2019-05-03 00:01] VITALS: BP 110/72
[2019-05-03 08:01] VITALS: BP 115/67
[2019-05-03] MEDS: CITALOPRAM HYDROBROMIDE 20 MG TABLET PO SCH (08:16)
[2019-05-03] MEDS: QUEtiapine FUMARATE 100 MG TABLET PO SCH (08:16)
[2019-05-03 16:01] VITALS: BP 103/67
[2019-05-03] MEDS: QUEtiapine FUMARATE 200 MG TABLET PO SCH (20:32)
[2019-05-04 05:39] VITALS: BP 110/61
[2019-05-04] MEDS: CITALOPRAM HYDROBROMIDE 20 MG TABLET PO SCH (08:35)
[2019-05-04] MEDS: QUEtiapine FUMARATE 100 MG TABLET PO SCH (08:35)
[2019-05-04 08:38] VITALS: BP 114/64
[2019-05-04 16:09] VITALS: BP 104/63
[2019-05-04] MEDS: BISACODYL 5 MG EC TABLET PO PRN (16:18)
[2019-05-04] MEDS: QUEtiapine FUMARATE 200 MG TABLET PO SCH (20:28)
[2019-05-05 06:19] VITALS: BP 108/69
[2019-05-05 08:01] VITALS: BP 102/61
[2019-05-05] MEDS: QUEtiapine FUMARATE 100 MG TABLET PO SCH (08:08)
[2019-05-05] MEDS: CITALOPRAM HYDROBROMIDE 20 MG TABLET PO SCH (08:08)
[2019-05-05 16:25] VITALS: BP 108/65
[2019-05-05] MEDS: QUEtiapine FUMARATE 200 MG TABLET PO SCH (20:32)
[2019-05-06 01:57] VITALS: BP 112/67
[2019-05-06 08:04] LABS: BASOPHILS % (AUTO) 0.9 % (0.0-2.0); EOSINOPHILS % (AUTO) 6.4 % (1.0-6.0); HEMATOCRIT 38.3 % (36-46); HEMOGLOBIN 12.7 g/dL (12.0-16.0); LYMPHOCYTES # (AUTO) 1.5 K/uL (1.0-4.8); LYMPHOCYTES % (AUTO) 22.9 % (22.0-44.0); MEAN CORPUSCULAR VOLUME 88 fL (80-100); MONOCYTES # (AUTO) 0.5 K/uL (0.1-1.0); MONOCYTES % (AUTO) 7.3 % (2.0-9.0); NEUTROPHILS # (AUTO) 4.2 K/uL (1.8-7.7); NEUTROPHILS % (AUTO) 62.5 % (40.0-70.0); PLATELET COUNT (AUTO) 324 K/uL (150-450); RED BLOOD CELL COUNT(AUTO) 4.36 MIL/uL (4.00-5.20); RED CELL DISTRIBUTION WIDTH 14.2 % (11.5-14.5)
[2019-05-06] MEDS: CITALOPRAM HYDROBROMIDE 20 MG TABLET PO SCH (08:07)
[2019-05-06] MEDS: QUEtiapine FUMARATE 100 MG TABLET PO SCH (08:08)
[2019-05-06 08:14] LABS: HEMOGLOBIN A1C 5.8 % (4.5-6.2)
[2019-05-06 08:20] VITALS: BP 110/60
[2019-05-06 08:32] LABS: ALANINE AMINOTRANSFERASE 67 U/L (12-78); ALBUMIN 3.1 g/dL (3.4-5.0); ALKALINE PHOSPHATASE 113 U/L (46-116); ANION GAP 8 mmol/L (8-16); ASPARTATE AMINOTRANSFERASE 36 U/L (15-37); BILIRUBIN,TOTAL 0.4 mg/dL (0.1-1.0); CALCIUM, TOTAL 8.6 mg/dL (8.8-10.5); CARBON DIOXIDE 25 mmol/L (22-29); CHLORIDE 104 mmol/L (98-107); CREATINE KINASE, TOTAL ONLY 44 U/L (26-192); CREATININE 0.86 mg/dL (0.60-1.30); GLOMERULAR FILTR. RATE CALC > 60 mL/min (>60); GLUCOSE,RANDOM 82 mg/dL (70-110); SODIUM SERUM 137 mmol/L (136-145); THYROID STIMULATING HORMONE 2.47 uIU/mL (0.36-3.74); TOTAL PROTEIN, SERUM 6.5 g/dL (6.4-8.2); UREA NITROGEN, BLOOD 14 mg/dL (7-18)
[2019-05-06 16:03] VITALS: BP 111/65
[2019-05-06] MEDS: QUEtiapine FUMARATE 200 MG TABLET PO SCH (20:06)
[2019-05-07 05:50] VITALS: BP 110/68
[2019-05-07 08:13] VITALS: BP 123/63
[2019-05-07] MEDS: CITALOPRAM HYDROBROMIDE 20 MG TABLET PO SCH (08:26)
[2019-05-07] MEDS: QUEtiapine FUMARATE 100 MG TABLET PO SCH (08:26)
== END 2019-05-07 16:25 | disposition home or self-care (01) | DRG 885 ==
LOC: B2S 11:53 → B2X 14:11
PROVIDERS: ADMIT Psychiatry & Neurology Psychiatry; ATTEND Psychiatry & Neurology Psychiatry
DX: F20.0 Paranoid schizophrenia (principal); E46 Unspecified protein-calorie malnutrition; N39.0 Urinary tract infection, site not specified; E83.51 Hypocalcemia; F32.9 Major depressive disorder, single episode, unspecified; M79.643 Pain in unspecified hand; K59.00 Constipation, unspecified; K29.70 Gastritis, unspecified, without bleeding; R51 Headache; Z68.25 Body mass index [BMI] 25.0-25.9, adult; Z59.0 Homelessness
CPT/HCPCS: 80074; 83036; 83735; 84439; 84443

== ENCOUNTER 2020-08-24 16:23 | Emergency (ER) | payer MEDICARE, OTHER ==
[~2020-08-24] VITALS: Ht 167.6 cm; Wt 67.3 kg
[~2020-08-24 16:23] MED LIST changes: -CITA-106 PO; +CITA-144 PO
[2020-08-24] MEDS ORDERED: D-ME-162 PO (16:39)
[2020-08-24 18:24] LABS: COVID AG,FIA SOURCE NASOPHARYNGEAL
[2020-08-24] MEDS ORDERED: KETOROLAC TROMETHAMINE 30 MG/ML VIAL IM ONE (18:30)
[2020-08-24] MEDS ORDERED: ACETAMINOPHEN 500 MG TABLET PO ONE (18:30)
[2020-08-24] MEDS ORDERED: ONDANSETRON HCL 4 MG TABLET PO ONE (18:30)
[2020-08-24 21:16] VITALS: BP 119/69
== END 2020-08-24 21:22 | disposition home or self-care (01) ==
LOC: EMS 16:23
DX: U07.1 COVID-19 (principal); R05 Cough; I10 Essential (primary) hypertension; Z79.899 Other long term (current) drug therapy
CPT/HCPCS: 71045; 81025; 87426; 96372; 99284; J1885; Q0162; U0003